=== PATIENT | male | born 1995 | race Two or more races ===

== ENCOUNTER → 2024-06-30 | Outpatient (CLI) | payer OTHER, SELFPAY | END | disposition home or self-care (01) | PROVIDERS: PCP Nurse Practitioner Family; Referring Provider Nurse Practitioner Family; Visit Provider Nurse Practitioner Family | DX: Z53.8 Procedure and treatment not carried out for other reasons (principal) ==

== ENCOUNTER → 2024-07-01 | Outpatient (CLI) | payer OTHER, SELFPAY ==
--- NOTE | 2024-07-01 | XR_ITS ---
Examination: Abdomen sonogram, Limited Date and time of exam: July 01, 2024 0729 hours INDICATIONS: Right lower abdominal pain beginning 3 days ago Technique: Real-time berumen scale transabdominal sonographic images of the lower abdomen obtained. Findings: No sonographic visualization appendix IMPRESSION: No sonographic visualization appendix
== END | disposition home or self-care (01) ==
LOC: CDIM 06:40
PROVIDERS: PCP Nurse Practitioner Family; Referring Provider Nurse Practitioner Family; Visit Provider Nurse Practitioner Family
DX: R10.9 Unspecified abdominal pain (principal)
CPT/HCPCS: 76705